=== PATIENT | female | born 1990 | race Two or more races ===

== ENCOUNTER 2016-07-03 07:33 | Emergency (ER) | payer MEDICAID, OTHER ==
[~2016-07-03] VITALS: Ht 165.1 cm; Wt 87.8 kg
[2016-07-03 07:34] VITALS: Ht 165.1 cm; Wt 87.8 kg
[2016-07-03] MEDS ORDERED: IBUP-1542 PO (07:58)
--- NOTE | 2016-07-03 08:03 | ERD ---
ER Documentation Chief Complaint Date/Time DATE: 07/03/16 TIME: 07:59 Chief Complaint neck pain HPI 25-year-old female complaining of left-sided neck pain since this morning. Patient stated that she was stretching after she got up this morning, and heard a pop on the left side of her neck. She is experienced pain at the outside, and is unable to move her head due to pain. Denies fall or other physical trauma. Denies shortness of breath. Denies numbness, tingling, or weakness in the extremities. ROS All systems reviewed and are negative except as per history of present illness. Medications Home Meds Active Scripts Ibuprofen* (Motrin*) 600 Mg Tab, 600 MG PO Q6H Y for PAIN AND OR ELEVATED TEMP, #30 TAB Prov:DARLENEKRISTYN X. DIETITIAN RESEARCH 07/03/16 Allergies Allergies: Coded Allergies: No Known Drug Allergies (Verified Allergy, 05/04/13) PMhx/Soc Medical and Surgical Hx: pt denies Medical Hx, pt denies Surgical Hx Hx Alcohol Use: No Hx Substance Use: No Hx Tobacco Use: No Physical Exam Vitals Vital Signs Date Time Temp Pulse Resp B/P Pulse Ox O2 Delivery O2 Flow Rate FiO2 07/03/16 07:34 98.1 73 18 116/73 99 Physical Exam General impression: Well-developed, well-nourished. Alert, oriented, in no acute distress Head: Normocephalic, atraumatic. Eyes: PERRL, EOM normal. Conjunctiva not injected. Neck: Left sternocleidomastoid spasm and tenderness noted. No midline tenderness. Limited range of motion of the neck due to pain. Respiration: Normal respiratory effort. Lungs clear to auscultate bilaterally. No wheezes, rales or rhonchi. Cardiovascular: Regular rate and rhythm. No murmurs or extra heart sounds. Neuro: Mental status normal, speech normal. DIE PRESS OPERATOR grossly intact. Normal sensation and motion in all 4 extremities. Skin: Normal turgor. No rash or lesions. Psych: Normal mood and affect. Procedures/MDM Well-appearing 25-year-old female complaining less and neck pain since this morning. Patient appeared to have a acute torticollis, likely due to neck muscle strain. Low suspicion for spinal fracture, subluxation, spinal epidural abscess. Patient is advised to apply ice to the area for 2 days, and then she may apply heat and massage to ease muscle spasm and pain. Patient appears well , stable for discharge and outpatient management. Medical decision making shared with patient and family. Education provided to patient and family. Patient and family expressed understanding of the plan. Medications on discharge: Ibuprofen. Follow-up: Primary care provider in 2-3 days or return to ED if worse. Departure Diagnosis: Primary Impression: Torticollis, acute Condition: Good Patient Instructions: Torticollis (Wry Neck) Referrals: [facility] YOU HAVE RECEIVED A MEDICAL SCREENING EXAM AND THE RESULTS INDICATE THAT YOU DO NOT HAVE A CONDITION THAT REQUIRES URGENT TREATMENT IN THE EMERGENCY DEPARTMENT. FURTHER EVALUATION AND TREATMENT OF YOUR CONDITION CAN WAIT UNTIL YOU ARE SEEN IN YOUR DOCTORS OFFICE WITHIN THE NEXT 1-2 DAYS. IT IS YOUR RESPONSIBILITY TO MAKE AN APPOINTMENT FOR FOLOW-UP CARE. IF YOU HAVE A PRIMARY DOCTOR --you should call your primary doctor and schedule an appointment IF YOU DO NOT HAVE A PRIMARY DOCTOR YOU CAN CALL OUR PHYSICIAN REFERRAL HOTLINE AT IF YOU CAN NOT AFFORD TO SEE A PHYSICIAN YOU CAN CHOSE FROM THE FOLLOWING [facility] [address] [facility]. [facility] [address] [facility] [facility] [address] [facility] [facility] [address] [facility]. [facility] [address] [facility] [facility]. [address] Additional Instructions: Call your primary care doctor TOMORROW for an appointment during the next 2-3 days.See the doctor sooner or return here if your condition worsens before your appointment time. KRISTYN COLON NP Jul 03, 2016 08:03
== END 2016-07-03 08:10 | disposition home or self-care (01) ==
LOC: FTE 07:33
DX: M43.6 Torticollis (principal)
CPT/HCPCS: 99283